=== PATIENT | female | born 1945 | race Asian ===

== ENCOUNTER 2024-09-28 13:30 | Outpatient (AMB) | payer MEDICARE, MEDICAID, SELFPAY ==
--- NOTE | 2024-09-28 13:46 | A.OFFPC_ITS ---
Vital Signs 09/28/24 13:47 Height 4 ft 5.7 in Weight 146 lb 6.191 oz BMI 35.7 BP 122/76 Blood Pressure Location Lt brachial Position Sitting Pulse 70 Pulse Source Pulse Oximeter Pulse Oximetry (%) 97 Oxygen Delivery Method Room Air Intake Visit Reasons: establish care Intake Note: The patient is here to establish care for GERD, vertigo, and joint pain/weakness in the lower extremities. The patient reports being unable to walk long distances without pain and also experiences lumbar pain. They recently returned to the state from [place] two months ago. Tester Operator Required: No Accompanied by: Son Allergies No Known Allergies Allergy (Verified 09/28/24 13:52) Tobacco use date assessed: 09/28/24 Fall risk assessment: No Falls in past year Last assessed Fall Risk: 09/28/24 Dental Screening Dental Screen Date: 09/28/24 Did you have a dental visit in the last 12 months?: Yes Did you have a dental problem in the last 6 months where you did not have access to dental care?: No Was dental information given to patient?: Patient has dentist [facility] Medical History (Updated 09/28/24 @ 14:36 by Norris Clark MD) Weakness Social History Housing: Apartment Patient Tobacco Use Status: Never used Tobacco e-Cigarette/Vaping Use: Never Used service: No Current occupational status: disabled Cognitive needs: No 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 1. Little interest or pleasure in doing things: more than half the days 2. Feeling down, depressed, or hopeless: nearly every day 3. Trouble falling or staying asleep, or sleeping too much: nearly every day 4. Feeling tired or having little energy: nearly every day 5. Poor appetite or overeating: nearly every day 6. Feeling bad about yourself - or that you are a failure or have let yourself or your family down: nearly every day 7. Trouble concentrating on things, such as reading the newspaper or watching television: more than half the days 8. Moving or speaking so slowly that other people could have noticed. Or the opposite - being so fidgety or restless that you have been moving around a lot more than usual: several days 9. Thoughts that you would be better off or of hurting yourself in some way: not at all Total score: 20 91965 - PHQ-9 Billing: Yes Source: Developed by Drs. Catalino Myers, Sallie Lopez, Vinh Meneses and colleagues, with an educational rebecca from [employer]. Thrive Questionnaire Date Thrive assessed: 09/28/24 I am a: Patient What is your living situation today?: I have a steady place to live Within the past 12 months, did the food you bought not last and you didn't have the money to get more?: Never true Within the past 12 months, did you worry whether your food would run out before you got money to buy more?: I choose not to answer this question Do you have trouble paying for medicines?: Yes Do you have trouble getting transportation to medical appointments?: Yes Do you have trouble paying your heating and electricity bill?: Yes Do you have trouble taking care of your child, family member or friend?: No Do you have trouble with day-to-day activities such as bathing, preparing meals, shopping, managing finances, etc.?: Yes Are you currently unemployed and looking for a job?: No Are you interested in more education?: No Please select the resources that you would like help with: Food, Paying for medicine, Utilities and Daily support Currently or been in a relationship where the following occur: No concerns reported THRIVE Score: 2 AUDIT C Alcohol Use Questionnaire (AUDIT-C) 1. How often do you have a drink containing alcohol?: Never 3. How often do you have six or more drinks on one occasion?: Never Total Score: 0 HEAVEN-7 AMB Questionnaire HEAVEN-7 Date HEAVEN - 7 assessed: 09/28/24 Feeling nervous, anxious, or on edge: 2 = More than half the days Not being able to stop or control worryin = More than half the days Worrying too much about different things: 2 = More than half the days Trouble relaxin = Several days Being so restless that it is hard to sit still: 1 = Several days Becoming easily annoyed or irritable: 1 = Several days Feeling afraid as if something awful might happen: 1 = Several days Total HEAVEN-7 score (0-4 normal; 5-9 mild; 10-14 moderate; 15-21 severe): 10 Source: Developed by Drs. Catalino Myers, Sallie Lopez, Vinh Meneses and colleagues, with an educational rebecca from [employer]. HEAVEN-7 Assessment Billing HEAVEN-7 Assessment Tool: HEAVEN-7 Assessment 97718 Physical exam (Primary Care) BMI result Body Mass Index 35.7 Thrive Assessment: Date of Thrive Assessment Date Thrive assessed 09/27/24 09/28/24 13:47 Currently or been in a relationship where the following occur: No concerns reported Coding Level of Care Code New Pt Level 4 (58628) Complex EM visit Add On G2211 Diagnoses Weakness R53.1 Additional Codes HEAVEN-7 Assessment Billing - HEAVEN-7 Assessment Tool: HEAVEN-7 Assessment 48119 ([id number]) PHQ-9 - 53559 - PHQ-9 Billing: Yes ([id number]) Assessment & Plan Assessment & Plan (1) Weakness: Code(s): R53.1 - Weakness Category: Medical Plan History of Present Illness The patient is a 79-year-old female presenting with generalized weakness that has been present for three to four years. The weakness is reported to be pr ogressive, and the patient describes a lack of strength and difficulty in performing daily activities. At home in [facility], the patient reported having a physiotherapist assist her daily. In addition to generalized weakness, the patient has long-standing gastroesophageal reflux disease (GERD), for which she regularly takes antacid medication to manage symptoms like acidity and burning sensations, particularly when consuming spicy foods. It has been five years since an endoscopic evaluation was done. 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 She denies any history of diabetes mellitus or hypertension. Her and daughter provide support with activities such as bathing and getting out for necessary functions like using the bathroom. The sedimentation rate was noted to be elevated at 90, which is above the normal range of 20 during a previous blood work evaluation. Social History - The patient recently moved from [place], where she lived with her and daughter. - She has been residing with her family for two months in the current location. - The patient's level of physical independence is reduced due to her generalized weakness, requiring assistance with some activities of daily living. - The patient relies on family support for transportation and functional assistance. Review of Systems - Ears, Nose, Throat: Reports partial hearing loss in the right ear. - Neuromuscular: Reports generalized weakness over the past three to four years. Denies any recent falls or accidents. Physical Exam General: Appearance normal, both eyes and all related structures Nutritional Appearance: Well nourished Orientation/consciousness: Patient oriented x3 Limitations: Generalized weakness, requires assistance for mobility and bathroom use Head: Normal to inspection Neck: Normal visual inspection Chest: Normal palpation of entire chest wall Respiratory: Normal respiratory effort Neurology: Patient oriented x3, hearing impairment in the right ear Results - Labs: Elevated sedimentation rate at 90 (normal should be <=0). Plan - Gastroesophageal Reflux Disease GERD): Continue with current antacid medication for symptom management. Consider dietary modifications to avoid triggers such as spicy foods. - Partial Hearing Loss Right Ear): Recommend an audiology assessment for further evaluation of hearing impairment and to determine necessary supportive interventions. - Generalized Weakness: Order imaging studies, including an X-ray of the spine and neck, and a CT scan of the head to further evaluate the etiology. Consider neurology referral for comprehensive assessment and management. Patient was informed and verbally consented to the use of an ambient scribe for clinic note documentation during this visit. Discussion Notes I discussed the management options for the patient's current health concerns, emphasizing the need for further diagnostic imaging to understand the underlying cause of her generalized weakness. We agreed to obtain an X-ray of the spine and neck, and a CT scan of the head. I explained the slightly elevated sedimentation rate and stated that this requires further investigation to identify any inflammatory processes. The risks and benefits of following up with neurology were reviewed should results show a need for further specialist input. We planned a follow-up visit in two weeks to review the findings and adjust the care plan as necessary. Patient Instructions - Continue taking prescribed antacid medication daily and monitor for any flare- ups of acidity symptoms. - Follow the dietary recommendations to avoid spicy foods and other known GERD triggers. - Schedule an audiology appointment to evaluate the extent of hearing loss. - Prepare for upcoming imaging studies as ordered, including X-ray and CT scan. - Return for follow-up in approximately two weeks to review results and discuss next steps in management. Orders: Orders Complete Blood Count no Diff Today R53.1 - Weakness Lipid Panel Today R53.1 - Weakness UA and rflx microscopic Today R53.1 - Weakness Erythrocyte Sedimentation Rate Today R53.1 - Weakness Basic Metabolic Panel Today R53.1 - Weakness Liver Panel Today R53.1 - Weakness Thyroid Stimulating Hormone Today R53.1 - Weakness XR lumbar spine 2-3V Today R53.1 - Weakness CT head/brain wo IV con Today R53.1 - Weakness
[2024-09-28 13:47] VITALS: BP 122/76; PULSE 70; O2SAT 97; BMI 35.7
== END 2024-09-28 14:42 | disposition home or self-care (01) ==
PROVIDERS: PCP Internal Medicine; Visit Provider Internal Medicine
DX: R53.1 Weakness (principal)

== ENCOUNTER → 2024-09-28 13:30 | Outpatient (BNVA) | payer MEDICARE, SELFPAY | PROVIDERS: Visit Provider Internal Medicine | DX: R53.1 Weakness (principal) | CPT/HCPCS: 96127; 99202 ==

== ENCOUNTER 2024-10-04 09:19 | Outpatient (REF) | payer MEDICARE, MEDICAID, SELFPAY | END 2024-10-04 09:20 | disposition home or self-care (01) | LOC: HO.XRAY 09:19 | PROVIDERS: PCP Internal Medicine; Visit Provider Internal Medicine | DX: R53.1 Weakness (principal) | CPT/HCPCS: 72100 ==

== ENCOUNTER 2024-10-07 07:56 | Outpatient (REF) | payer MEDICARE, MEDICAID, SELFPAY ==
[2024-10-07 09:04] LABS: Hematocrit 39.2 % (37.0-47.0); Hemoglobin 12.7 g/dl (12.0-16.0); Mean Corpuscular HGB Conc 32.4 g/dl (31.0-35.0); Mean Corpuscular Hemoglobin 29.5 pg (27.0-33.0); Mean Corpuscular Volume 91.2 fL (80.0-98.0); Mean Platelet Volume 11.2 fL (9.4-12.3); Platelet Count 292 X10*3/uL (160-400); Red Cell Distribution Width 13.7 % (11.0-16.0); White Blood Count 8.2 X10*3/uL (4.8-10.8)
[2024-10-07 09:15] LABS: Appearance Urine Cloudy; Color Urine Yellow; Glucose Urine UA Negative (Negative); Leukocyte Esterase Urine Negative (Negative); Nitrite Urine Negative (Negative); Specific Gravity - Urine 1.015 (1.005-1.025); UMIC TRIGGER UA YES; Urine Blood Small (1+) (Negative); Urine Ketones Negative (Negative); Urine Protein Negative (Neg-Trace)
[2024-10-07 09:27] LABS: Bacteria Urine Trace (None Seen); Hyaline Casts Urine 0-2 /LPF (0-2); RBC Urine 0-2 /HPF (0-2); WBC Urine 0-5 /HPF (0-5)
[2024-10-07 09:34] LABS: Alanine Aminotransferase 14 U/L (0-31); Albumin Level 3.8 g/dL (3.5-5.0); Alkaline Phosphatase 81 U/L (39-117); Anion Gap 9 (12-20); Aspartate Amino Transferase 19 U/L (5-31); Bilirubin Direct 0.1 mg/dL (0.0-0.5); Bilirubin Total 0.5 mg/dL (0.0-1.0); Blood Urea Nitrogen 15 mg/dL (9-16); Calcium 9.8 mg/dL (8.4-10.2); Carbon Dioxide 30 mmol/L (22-29); Chloride 107 mmol/L (96-108); Cholesterol 219 mg/dL (<200); Estimated Glomerular Filt Rate > 60; Glucose Random 91 mg/dL (60-115); HDL Cholesterol 38 mg/dL (>40); LDL Cholesterol Calculated 144 mg/dL (<100); Potassium 4.3 mmol/L (3.3-5.1); Sodium 142 mmol/L (135-145); Total Protein 7.5 g/dL (6.5-8.0); Triglycerides 186 mg/dL (<150)
[2024-10-07 09:42] LABS: Erythrocyte Sedimentation Rate 43 MM/HR (0-20)
[2024-10-07 09:51] LABS: Thyroid Stimulating Hormone 4.03 uIU/mL (0.32-4.0)
== END 2024-10-07 07:57 | disposition home or self-care (01) ==
LOC: HO.LAB 07:56
PROVIDERS: PCP Internal Medicine; Visit Provider Internal Medicine
DX: R53.1 Weakness (principal)
CPT/HCPCS: 36415; 80048; 80061; 80076; 81001; 84443; 85027; 85652

== ENCOUNTER 2024-10-10 10:18 | Outpatient (AMB) | payer MEDICARE, MEDICAID, SELFPAY ==
--- NOTE | 2024-10-10 10:21 | A.OFFPC_ITS ---
Vital Signs 10/10/24 10:23 Height 4 ft 5.7 in Weight 146 lb 4 oz BMI 35.7 BP 132/68 Blood Pressure Location Lt brachial Position Sitting Pulse 81 Pulse Source Pulse Oximeter Pulse Oximetry (%) 98 Oxygen Delivery Method Room Air Intake Visit Reasons: 2 week f/u Intake Note: Patient is here to follow up on Weakness. Director Global Development Required: No Plastic Surgery Assistant: Present Accompanied by: Son Allergies No Known Allergies Allergy (Verified 10/10/24 10:23) Tobacco use date assessed: 10/10/24 Fall risk assessment: No Falls in past year Last assessed Fall Risk: 10/10/24 Dental Screening Dental Screen Date: 09/28/24 PFSH Medical History (Updated 10/10/24 @ 11:12 by Norris Clark MD) Kyphoscoliosis Weakness Surgical History (Updated 10/10/24 @ 10:31 by BETTY Isaacs) No pertinent past surgical history Social History Housing: Apartment Patient Tobacco Use Status: Never used Tobacco e-Cigarette/Vaping Use: Never Used Second Hand Smoke Exposure: No service: No Current occupational status: disabled Cognitive needs: No 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 ) Vision needs: No Questionnaire Thrive Questionnaire Date Thrive assessed: 09/28/24 I am a: Patient What is your living situation today?: I have a steady place to live Within the past 12 months, did the food you bought not last and you didn't have the money to get more?: Never true Within the past 12 months, did you worry whether your food would run out before you got money to buy more?: I choose not to answer this question Do you have trouble paying for medicines?: Yes Do you have trouble getting transportation to medical appointments?: Yes Do you have trouble paying your heating and electricity bill?: Yes Do you have trouble taking care of your child, family member or friend?: No Do you have trouble with day-to-day activities such as bathing, preparing meals, shopping, managing finances, etc.?: Yes Are you currently unemployed and looking for a job?: No Are you interested in more education?: No Currently or been in a relationship where the following occur: No concerns reported THRIVE Score: 2 HEAVEN-7 AMB Questionnaire HEAVEN-7 Date HEAVEN - 7 assessed: 09/28/24 Source: Developed by DrsLucien Myers, Sallie Lopez, Vinh Meneses and colleagues, with an educational rebecca from [employer]. Physical exam (Primary Care) Vital Signs: Last Vital Signs Pulse 81 10/10/24 10:23 BP 132/68 10/10/24 10:23 Pulse Ox 98 10/10/24 10:23 Oxygen Delivery Method Room Air 10/10/24 10:23 BMI result Body Mass Index 35.7 Tobacco/Smoking Status: Tobacco use Status Tobacco use date assessed 10/10/24 10/10/24 10:30 Patient Tobacco Use Status Never used Tobacco 10/10/24 10:22 e-Cigarette/Vaping Use Never Used 10/10/24 10:22 Thrive Assessment: Date of Thrive Assessment Date Thrive assessed 09/28/24 10/10/24 10:22 Currently or been in a relationship where the following occur: No concerns reported Office Procedures EKG 13681-Xoxxptdqxmutbywno, Complete EKG Details: NSR 72459-Ftglroebgdxyyechl, Complete Coding Level of Care Code Est Pt Level 4 (68174) Complex EM visit Add On G2211 Diagnoses Kyphoscoliosis M41.9 Weakness R53.1 Shortness of breath R06.02 CPT Codes EKG - CPT: 85981-Riqdrbrjdbfjzyffl, Complete ([id number]) EKG - CPT: 10836-Dcqvcitzujaygeqxp, Complete ([id number]) Assessment & Plan Assessment & Plan (1) Kyphoscoliosis: Code(s): M41.9 - Scoliosis, unspecified Category: Medical Plan: Most of her symptoms of weakness and shortness of breath can be attributed to deconditioning and kyphoscoliosis. An ortho evaluation will be considered to determine if any procedures are available to correct this. (2) Weakness: Code(s): R53.1 - Weakness Category: Medical Plan: Weakness is due to deconditioning. Physical therapy has been suggested. (3) Shortness of breath: Code(s): R06.02 - Shortness of breath Plan: EKG revd Plan History of Present Illness The patient is a 79-year-old female presenting with chronic weakness. The onset of this symptom is not clearly dated, but it is noted as a long-standing issue. Additionally, the patient exhibits signs of deconditioning, primarily attributed to progressive kyphoscoliosis and scoliosis. Her condition has deteriorated over time, leading to difficulty in maintaining posture and walking balance. Son in law reports her symptoms of weakness and difficulty walking have been present for many years, She has been unable to do her ADL's. She has a progressing kyphosis which is making ambulation difficult. Patient reports Shortness of breath on exertion. Previous interventions included a physiotherapist visiting her home in [place], which has not been continued in the current setting. Diagnostic tests, including a CAT scan and X-rays, are pending or not received yet. Social History - Functional Status: Largely inactive lifestyle with reliance on household assistance and minimal physical exertion. - Family Status: Living with family since 2019 following the of her [id number]-ynt. - Exercise: Previously engaged with a physiotherapist at home in [place], but not currently. Review of Systems - Ear/Nose/Throat: Reports persistent right ear pain. - Musculoskeletal: Reports progressive spinal curvature and difficulty with walking. Physical Exam General: Appearance normal, both eyes and all related structures Nutritional Appearance: Well nourished Orientation/consciousness: Patient oriented x3 Limitations: Progressive kyphosis and scoliosis present Head: Normal to inspection Neck: Normal visual inspection Chest: Normal palpation of entire chest wall Respiratory: Normal respiratory effort Neurology: Patient oriented x3 Able to get up from a chair, without support, with extreme difficulty. Cannot lie down flat on the bed, has to lie down sideways. Results Plan - Arrange a physical therapy consultation to manage kyphoscoliosis and scoliosis, initiating therapy at the clinic and transitioning to home if feasible. - Schedule a follow-up appointment to review the pending CAT scan results and X- rays once received. - Discuss the necessity of daily walking to enhance physical conditioning and balance. - Consider referral to orthopedics for further management of spinal deformities. - Coordinate transportation resources to facilitate attendance at medical appointments. Patient was informed and verbally consented to the use of an ambient scribe for clinic note documentation during this visit. Discussion Notes I discussed with the patient the present diagnosis of progressive kyphoscoliosis and scoliosis, highlighting the impact this has on her current deconditioning state. Physical therapy was emphasized as critical for managing her condition with further evaluation by an military communications specialist if necessary. We agreed that daily walking could help in mitigating further deconditioning. Logistics for transportation to appointments and therapy sessions were verified to ensure accessibility. I will follow up with her in one month to assess her progress and needs. Patient Instructions - Attend scheduled physical therapy sessions. - Engage in daily walking to improve strength and balance. - Await and comply with further investigations including CAT scan and X-rays. - Coordinate with provided transportation services for medical visits. - Expect follow-up in one month to review progress and reassess care plan. Orders: Orders AMB EKG-In Office Today R06.02 - Shortness of breath AMB EKG-In Office Today R53.1 - Weakness, Z13.6 - Encounter for screening for cardiovascular disorders
[2024-10-10 10:23] VITALS: BP 132/68; PULSE 81; O2SAT 98; BMI 35.7
== END 2024-10-10 11:13 | disposition home or self-care (01) ==
PROVIDERS: Visit Provider Internal Medicine
DX: M41.9 Scoliosis, unspecified (principal); R53.1 Weakness; R06.02 Shortness of breath

== ENCOUNTER → 2024-10-10 10:18 | Outpatient (BNVA) | payer MEDICARE, SELFPAY | PROVIDERS: Visit Provider Internal Medicine | DX: M41.9 Scoliosis, unspecified (principal); R53.1 Weakness; R06.02 Shortness of breath | CPT/HCPCS: 93005; 99212 ==

== ENCOUNTER 2024-11-14 15:10 | Outpatient (REF) | payer MEDICARE, MEDICAID, SELFPAY ==
--- NOTE | ~2024-11-14 | CT_ITS ---
EXAMINATION: CT HEAD WITHOUT CONTRAST CLINICAL INFORMATION: Weakness COMPARISON: None available. TECHNIQUE: Contiguous axial imaging was performed from the skull base to vertex without intravenous administration of contrast. This CT examination was performed using dose optimization techniques as appropriate, variously including the following: *Automated exposure control *Adjustment of mA and/or kV according to patient size (this includes techniques or standardized protocols for targeted exams where dose is matched to indication/reason for exam; i.e. extremities or head) *Use of iterative reconstruction technique. DLP 717 FINDINGS: There is no acute intra-axial, extra-axial bleed, masses or midline shift. There is no acute infarction evolution. The fink to white matter differentiation is maintained normal. The lateral ventricles are symmetrical in size but moderately enlarged. There is mild periventricular hypodensity in both cerebral hemispheres without edema. Bone windows reveal no calvarial abnormality. Bilateral paranasal sinuses and mastoid air cells are well-aerated. There is no scalp soft tissue abnormality. Moderate left C1-C2 facet joint arthropathy and hypertrophy is noted. CT/CT head/brain wo IV con IMPRESSION: No acute intracranial process seen. Electronically signed by: Champ Brooks MD 11/14/2024 04:03 PM [facility]
== END 2024-11-14 15:11 | disposition home or self-care (01) ==
LOC: HO.CT 15:10
PROVIDERS: Visit Provider Internal Medicine
DX: R53.1 Weakness (principal)
CPT/HCPCS: 70450

== ENCOUNTER → 2024-11-14 15:12 | Outpatient (BNV) | payer MEDICARE, MEDICAID, SELFPAY | PROVIDERS: Visit Provider Radiology Diagnostic Radiology | DX: R53.1 Weakness (principal) | CPT/HCPCS: 70450 ==

== ENCOUNTER → 2024-11-24 07:45 | Outpatient (BNVA) | payer MEDICARE, SELFPAY | PROVIDERS: Visit Provider Internal Medicine | DX: M41.9 Scoliosis, unspecified (principal); E03.9 Hypothyroidism, unspecified; N89.8 Other specified noninflammatory disorders of vagina | CPT/HCPCS: 96127; 99212 ==

== ENCOUNTER 2024-12-20 08:52 | Outpatient (REF) | payer MEDICARE, SELFPAY ==
[2024-12-21 11:48] LABS: CT PCR NOT DETECTED (Not Detect.); NG PCR NOT DETECTED (Not Detect.)
[2024-12-21 13:48] LABS: Bacterial Vaginosis PCR NEGATIVE (Negative); Candida Group PCR NOT DETECTED (Not Detect); Candida glab krusei PCR NOT DETECTED (Not Detect); Trichomonas vaginalis PCR NOT DETECTED (Not Detect)
== END 2024-12-20 08:53 | disposition home or self-care (01) ==
LOC: HO.LNP 08:52
PROVIDERS: Visit Provider Obstetrics & Gynecology
DX: N89.8 Other specified noninflammatory disorders of vagina (principal); R31.29 Other microscopic hematuria
CPT/HCPCS: 81515; 87086; 87491; 87591; 99202; 99459

== ENCOUNTER 2024-12-20 08:52 | Outpatient (AMB) | payer MEDICARE, MEDICAID, SELFPAY ==
[2024-12-20 09:10] VITALS: BMI 35.1
--- NOTE | 2024-12-20 09:10 | MHC.OFFVIS ---
Vital Signs 12/20/24 09:10 12/20/24 09:16 Height 4 ft 5.7 in 4 ft 5.7 in Weight 144 lb 144 lb BMI 35.1 35.1 BP 122/72 Intake Visit Reasons: Disorder of Vagina Micro Computer Data Processor Required: Yes Micro Computer Data Processor Language: Simone Micro Computer Data Processor Services: Micro Computer Data Processor Present (in person) Micro Computer Data Processor Name: Zaira Quintero Information Interpreted: non-clinical & clinical Placement Secretary: Placement Secretary Present (Neela Scales) Accompanied by: Daughter Allergies No Known Allergies Allergy (Verified 12/20/24 09:14) HPI Comments Details: Presenting complaining of vaginal discharge brownish in color over the last few years according to the patient, it was associated with urinary dysuria, vaginal foul odor, no vulvovaginal itching PFSH Medical History Acquired hypothyroidism Kyphoscoliosis Weakness Surgical History History of left knee replacement No pertinent past surgical history Social History Housing: Apartment Patient Tobacco Use Status: Never used Tobacco e-Cigarette/Vaping Use: Never Used Second Hand Smoke Exposure: No service: No Current occupational status: disabled Cognitive needs: No 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 ) Vision needs: No Female Reproductive History Menstrual Total pregnancies: 6 Full term: 2 Ab spontaneous: 4 Review of Systems Const All systems reviewed & are unremarkable except as noted in HPI and below Physical Exam Vital Signs: Last Vital Signs BP 122/72 12/20/24 09:16 BMI result Body Mass Index 35.1 General: Yes no CVA tenderness External Female Exam: normal external appearance and normal appearance of the urethra Speculum Exam - Vagina: normal appearance of the vagina, normal palpation, no lesions and no masses Speculum Exam - Cervix: normal appearance of the cervix, normal palpation, no lesions, no masses and nontender Bimanual exam- vagina & uterus: normal bimanual exam, normal palpation, uterine size normal, normal palpation, uterine shape normal, No Cervical tenderness present and non-tender Bimanual Exam- Adnexa, other: normal adnexae Back/Spine/Pelvis Back: no CVA tenderness Assessment & Plan Assessment & Plan (1) Vaginal discharge: Comment: Brownish with malodor Code(s): N89.8 - Other specified noninflammatory disorders of vagina Category: Medical Plan: GC/CT with BV panel collected, pelvic ultrasound ordered. Instructions given the patient is schedule an ultrasound follow-up appointment within 2 weeks. All questions answered, the patient verbalized understanding (2) Microscopic hematuria: Code(s): R31.29 - Other microscopic hematuria Category: Medical Plan: Urine dip showed microscopic hematuria, urine culture sent. Will repeat urine dip in 2 weeks. Discussed with the patient the possible causes of microscopic hematuria including but not limited to: interstitial cystitis, polyps, stones, masses, urethral inflammatory processes and others. If Urine Culture is negative and repeat urine dip in 2 weeks shows persistent microscopic hematuria, will proceed with CT abdomen/pelvis and urology referral. Instructions given the patient to schedule a 2 week urine dip follow-up appointment. All questions answered and the patient verbalized understanding. Orders: Orders US pelvic and transvaginal Today N89.8 - Other specified noninflammatory disorders of vagina Coding Level of Care Code New Pt Level 3 (47081) Diagnoses Vaginal discharge N89.8 Microscopic hematuria R31.29
[2024-12-20 09:16] VITALS: BP 122/72; BMI 35.1
--- OUTSIDE RECORDS SUMMARY | 2024-12-20 09:32 | XMS_ITS | Patient Health Record ---
Author Organization Medical Care Address [address] [facility] [address] [place] [address] Support Name Relationship Address Phone Aurora Quintero Guarantor Unknown [phone] Allergies No Known Allergies Reason For Referral No Information Plan Of Treatment Pending Test Test Name Order Date Covid-19 PCR - [facility] 07/30/2021 COVID 19 07/30/2021 Insurance Providers Payer Name Payer Address Payer Phone Subscriber Number Group Number Insured Name Patient Relationship to Insured Coverage Start Date Coverage End Date [place] Medicare Part [place] J13 - [address] [place] [phone] [id number] Aurora Quintero Self - patient is the insured
== END 2024-12-20 10:02 | disposition home or self-care (01) ==
PROVIDERS: Visit Provider Obstetrics & Gynecology
DX: N89.8 Other specified noninflammatory disorders of vagina (principal); R31.29 Other microscopic hematuria
CPT/HCPCS: 99203

== ENCOUNTER 2024-12-27 10:01 | Outpatient (RCR) | payer MEDICARE, MEDICAID, SELFPAY ==
--- NOTE | 2024-11-16 09:00 | MHC.PT.EP ---
[facility] [place] Office [place] Office [place] Office [address] Joceline Morgna [address] [phone] F: [phone] F: [phone] F: [phone] F: [phone] Physical Therapy Plan of Care Date of Evaluation: 11/15/24 Date of Surgery: Diagnosis: KYPHOSCOLIOSIS, WEAKNESS, DECONDITIONING DUE TO SEDENTARY HABITS (ON XR: Bilateral SI joint arthritis.) Assessment: 79 YO FEMALE REF TO PT W KYPHOSCOLIOSIS AND WEAKNESS DUE TO SEDENTARY LIFESTYLE , PER DR DE SANTIAGO. SHE PRESENTED W ALTERED GAIT MECH, PAIN LIMITING TRANSFERS AND BED MOB, LIMITED TRUNK AROM AND DECR HIP FLEXIB., AND FLUCTUATING PAIN IN HER LB AND THIGHS. SHE REQ ASSIST W MOST ADLs. THE Pt STATED THE MAJORITY OF HER DAY CONSISTS OF SITTING- READING, LECTURES, PRAYERS-> SHE APPLIES HEAT AND USES A CUSHION IN HER CHAIR. SHE WOULD BENEFIT FROM A TRIAL OF PT. Frequency and Duration: The patient will be seen 2 x WK x 4 WKS Short Term Goals: DECR MID-LBP TO 3-4/10 Pt INDEP W SELF CORRECT POSTURE INITIATE HEP FOR LEs AND LUMBOPELVIC SYMM/ STAB, ENCOURAGING WITH FAMILY ASSIST FOR CARRYOVER IMPROVE LEs STRENGTH TO IMPROVE TRANSFERS/ BED MOB Prison Goals: Pt AND DTRS INDEP W HEP AND SELF-SX MGMT TECHN Pt IMPROVE OVERALL ACTIVITY LEVEL-> IMPROVED OSWESTRY (AT EVAL ) Pt DISPLAY EFFICIENT GAIT MECH W LEAST RESTRICTIVE ASST DEVICE Pt DEMON EFFICIENT TRANSFERS AND BED MOB Treatment Plan: Modalities to reduce pain, spasms and effusion. Manual therapy to restore motion and function. Therapeutic exercise to improve strength and flexibility. Neuromuscular re-education for posture and balance. Therapeutic activities to return to functional activities of daily living. Electronically signed by: ELIZABETH SUTHERLANDPT Please sign and return to therapist. Thank you for your referral.
--- NOTE | 2024-12-27 11:01 | MHC.PT.DC ---
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 HER LEs STRENGTH IS IMPROVED , WELL HER LEs FLEXIBILITY. SHE IS D/C THIS DATE W HER HEP. Electronically signed by: ELIZABETH SUTHERLAND,PT Please sign and return to therapist. Thank you for your referral.
== END 2024-12-27 11:01 | disposition home or self-care (01) ==
LOC: HO.PT 10:01
PROVIDERS: PCP Internal Medicine; Visit Provider Internal Medicine
DX: M41.9 Scoliosis, unspecified (principal); R53.1 Weakness
CPT/HCPCS: 97110; 97162; 97530

== ENCOUNTER 2025-01-10 13:36 | Outpatient (REF) | payer MEDICARE, SELFPAY ==
--- NOTE | ~2025-01-10 | US_ITS ---
EXAMINATION: US PELVIS TRANSABDOMINAL AND TRANSVAGINAL HISTORY: N89.8 - vaginal discharge COMPARISON: There are no prior studies for comparison. TECHNIQUE: Transabdominal and endovaginal real-time 2D sainz-scale ultrasound was performed. FINDINGS: Uterus: The uterus is normal in size, measuring 6.1 x 3.2 x 5.1 cm. Myometrium has a normal echotexture. No fibroids are identified. Endometrium: The endometrial stripe measures 18 mm in thickness and is markedly heterogeneous in appearance demonstrating multiple cystic areas. Right ovary: The right ovary is not identified. Left ovary: The left ovary is not identified. Pelvic fluid: none. US/US pelvic and transvaginal IMPRESSION: Thickened heterogeneous endometrial stripe demonstrating multiple cystic areas. A mass is not excluded. Hysteroscopy is suggested. Electronically signed by: Catalino Kaba MD 01/10/2025 03:16 PM EDT
--- OUTSIDE RECORDS SUMMARY | 2025-01-10 16:03 | XMS_ITS | Patient Health Record ---
Author Organization Medical Care Address [address] [facility] [address] [place] [address] Support Name Relationship Address Phone Aurora Quintero Guarantor Unknown [phone] Allergies No Known Allergies Reason For Referral No Information Plan Of Treatment Pending Test Test Name Order Date Covid-19 PCR - [facility] 07/30/2021 COVID 19 07/30/2021 Insurance Providers Payer Name Payer Address Payer Phone Subscriber Number Group Number Insured Name Patient Relationship to Insured Coverage Start Date Coverage End Date [place] Part [place] J13 - [address] [place] [address] [id number] Aurora Quintero Self - patient is the insured
== END 2025-01-10 13:37 | disposition home or self-care (01) ==
LOC: HO.US 13:36
PROVIDERS: Visit Provider Obstetrics & Gynecology
DX: N89.8 Other specified noninflammatory disorders of vagina (principal)
CPT/HCPCS: 76830; 76856

== ENCOUNTER → 2025-01-10 13:37 | Outpatient (BNV) | payer MEDICARE, SELFPAY | PROVIDERS: Visit Provider Radiology Diagnostic Radiology | DX: N85.8 Other specified noninflammatory disorders of uterus (principal); N89.8 Other specified noninflammatory disorders of vagina | CPT/HCPCS: 76830; 76856 ==

== ENCOUNTER 2025-01-13 14:01 | Outpatient (AMB) | payer MEDICARE, SELFPAY ==
--- NOTE | 2025-01-13 14:08 | MHC.OFFVIS ---
Intake Visit Reasons: ultrasound results Display Fabricator Required: Yes Display Fabricator Language: Simone Display Fabricator Services: Display Fabricator Present ([email or web address]) Display Fabricator Name: Mian [id number] Information Interpreted: clinical only Newspaper Vendor: Newspaper Vendor Present (Neela) Accompanied by: Daughter Allergies No Known Allergies Allergy (Verified 01/13/25 14:10) Is last menstrual period known: No Post menopausal: Yes Patient : No Do you need a note to return to daycare/school/sports/work: Yes (for surgery on thursday) HPI Comments Details: Presenting for ultrasound follow-up after prominence vaginal discharge. Pelvic ultrasound done on 01/10/2025 showed the following: Uterus: The uterus is normal in size, measuring 6.1 x 3.2 x 5.1 cm. Myometrium has a normal echotexture. No fibroids are identified. Endometrium: The endometrial stripe measures 18 mm in thickness and is markedly heterogeneous in appearance demonstrating multiple cystic areas. Right ovary: The right ovary is not identified. Left ovary: The left ovary is not identified. Pelvic fluid: none. 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 ) Vision needs: No Female Reproductive History Menstrual Date of last menstrual period: 08/23/20 Total pregnancies: 2 Full term: 2 Review of Systems Card Reports as per HPI and Reports no additional complaints Resp Reports as per HPI and Reports no additional complaints GI Reports as per HPI and Reports no additional complaints Reports as per HPI Physical Exam Const General: cooperative, healthy appearing and comfortable Resp Effort & Inspection: normal respiratory effort Auscultation: clear to auscultation bilaterally Percussion: percussion normal Cardio Palpation: normal PMI Rate: regular rate Rhythm: regular rhythm Heart sounds: no murmurs and no rubs Peripheral pulses: Peripheral pulses 2+ throughout GI Inspection: Yes normal to inspection Palpation (GI): Soft to palpation, nontender, no guarding, not rigid and No hepatosplenomegaly present Percussion: Yes normal to percussion Auscultation: normal bowel sounds Rectal Exam - Female: deferred Assessment & Plan Assessment & Plan (1) Abnormal ultrasound of endometrium: Code(s): R93.5 - Abnormal findings on diagnostic imaging of other abdominal regions, including retroperitoneum Category: Medical Plan: Discussed with the patient the pelvic ultrasound findings, the endometrial stripe thickenss measured by ultrasound was more than 4mm and being heterogenous. The negative predictive value, positive predictive value, Sensitivity, specificity of using ultrasound measurement of endometrial stripe to detecting endometrial pathology including hyperplasia , polyp or cancer were discussed with the patient. Recommended to the patient that the next step is an endometrial sampling via hysteroscopy D&C possible polypectomy versus endometrial biopsy to r/o endometrial pathology including hyperplasia or cancer. All the pros and cons risks and benefits of each approach were discussed with the patient, endometrial biopsy being less invasive, office procedure with less sensitivity and inability diagnose a polyp and removal versus hysteroscopy done under anesthesia more invasive more sensitive to endometrial cancer and possibility of diagnosing and endometrial polyp with the possibility of polypectomy. All questions were answered pt verbalized understanding and decided to proceed with hysteroscopy D&C possible polypectomy/myomectomy. Discussed with the patient the procedure , all benefits and risks including but not limited to inability to complete the procedure , insufficient endometrial tissue for a complete evaluation of the endometrial cavity , bleeding, infection, possible need for blood transfusion with all its risk ( HIV,syphilis, Hepatitis, anaphylaxis shock, others..), injury to bladder, rectum, possible need for laparoscopy/laparotomy or hysterectomy. The patient verbalized understanding and signed the consent. Instructions given the patient to stay NPO after midnight the day prior to the procedure and to take only the specific medication (s) discussed the morning of the surgical procedure and to schedule a 2 week postoperative appointment Coding Level of Care Code Est Pt Level 3 (63123) Diagnoses Abnormal ultrasound of endometrium R93.5
--- OUTSIDE RECORDS SUMMARY | 2025-01-13 16:18 | XMS_ITS | Patient Health Record ---
Author Organization Medical Care Address [address] [facility] [address] [place] [address] Support Name Relationship Address Phone Aurora Quintero Guarantor Unknown [phone] Allergies No Known Allergies Reason For Referral No Information Plan Of Treatment Pending Test Test Name Order Date Covid-19 PCR - [facility] 07/30/2021 COVID 19 07/30/2021 Insurance Providers Payer Name Payer Address Payer Phone Subscriber Number Group Number Insured Name Patient Relationship to Insured Coverage Start Date Coverage End Date [place] Part [place] J13 - [address] [place] [address] [id number] Aurora Quintero Self - patient is the insured
== END 2025-01-13 15:16 | disposition home or self-care (01) ==
LOC: HO.HWS 14:01
PROVIDERS: PCP Internal Medicine; Visit Provider Obstetrics & Gynecology
DX: R93.5 Abnormal findings on diagnostic imaging of other abdominal regions, including retroperitoneum (principal)
CPT/HCPCS: 99213

== ENCOUNTER → 2025-01-13 14:01 | Outpatient (BNVA) | payer MEDICARE, SELFPAY | PROVIDERS: PCP Internal Medicine; Visit Provider Obstetrics & Gynecology | DX: R93.5 Abnormal findings on diagnostic imaging of other abdominal regions, including retroperitoneum (principal) | CPT/HCPCS: 99212 ==

== ENCOUNTER 2025-01-25 12:45 | Day surgery (SDC) | payer MEDICARE, SELFPAY ==
--- NOTE | 2025-01-23 14:28 | HO.ANESPROP2 ---
HPI - Anesthesia Eval Consult details Narrative: 79yo F for D&C Hysteroscopy, possible myomectomy/ polypectomy PMFSH Active Problems Active Problems: All Active Problems Abnormal ultrasound of endometrium (Acute) Microscopic hematuria (Acute) Vaginal discharge (Acute) Acquired hypothyroidism (Acute) Kyphoscoliosis (Acute) Weakness (Acute) Past Medical History Medical History Acquired hypothyroidism Kyphoscoliosis Weakness Surgical History Surgical History History of left knee replacement Social History Social History Housing: Apartment Patient Tobacco Use Status: Never used Tobacco e-Cigarette/Vaping Use: Never Used Second Hand Smoke Exposure: No service: No Current occupational status: disabled Cognitive needs: No 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
[2025-01-25 12:57] VITALS: BMI 30.9
[2025-01-25 13:15] VITALS: BP 178/73; PULSE 93; RESP 16; TEMP 36.7; O2SAT 99
[2025-01-25] MEDS: Lactated Ringers 1,000 ML 100 ML IVCONT (13:35)
--- NOTE | 2025-01-25 13:53 | HO.ANESPROP2 ---
[facility] Active Problems Active Problems: All Active Problems Abnormal ultrasound of endometrium (Acute) Microscopic hematuria (Acute) Vaginal discharge (Acute) Acquired hypothyroidism (Acute) Kyphoscoliosis (Acute) Weakness (Acute) Past Medical History Medical History Acquired hypothyroidism Kyphoscoliosis Weakness Functional capacity: independent ambulation Patient : No Family History Family history of problems with anesthesia: No Surgical History Surgical History History of left knee replacement History of Problems with Anesthesia: No Social History Social History Housing: Apartment Patient Tobacco Use Status: Never used Tobacco e-Cigarette/Vaping Use: Never Used Second Hand Smoke Exposure: No service: No Current occupational status: disabled Cognitive needs: No 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 ) Vision needs: No Meds Allergies Allergy/AdvReac Type Severity Reaction Status Date / Time No Known Allergies Allergy Verified 01/13/25 14:10 Active Medications: Current Medications Lactated Ringer's (Lr) 1,000 mls @ 100 mls/hr IVCONT .Q10H ALEJANDRA Last Admin: 01/25/25 13:35 Dose: 100 mls/hr Exam Height,Weight and Vital Signs: Height 4 ft 9 in Weight 64.8 kg Last Vital Signs Temp 98.1 F 01/25/25 13:15 Pulse 93 01/25/25 13:15 Resp 16 01/25/25 13:15 BP 178/73 H 01/25/25 13:15 Pulse Ox 99 01/25/25 13:15 O2 Del Method Room Air 01/25/25 13:15 Airway Mallampati Class: II TM Dist: >3cm Neck ROM: Full Heart: RRR Lungs: CTA Assessment and Plan Assessment Anesthesia Assessment: Anesthesia Plan Discussed and Chart Reviewed Final Anesthetic Review Family History of Problems with Anesthesia: No History of Problems with Anesthesia: No NPO: Yes ASA Class: II Final Preanesthetic Review: Meds/Allgs Chart Reviewed, Consent Obtained/Reviewed and Anes Risks/Benef Reviewed Patient Risk: Low Procedure Risk: Low Anesthetic Plan Anesthetic Plan: GA Disposition: Standard PACU
--- NOTE | 2025-01-25 14:12 | MHC.SHP ---
Pre-Procedural Eval Section A - 24 Hr Update-Section A only Date of Service: 01/25/25 The patient is an INPATIENT: No Changes since office visit: No Cold of Flu in the past 2 weeks, No New Medical Problems, No Changes in Medication and No Patient answered all questions The patient has been examined within 24 hours of the surgical procedure. The History & Physical has been completed within 30 days and I have reviewed it.: Yes Section B - Complete if H&P > 30 days Chief Complaint: Abnormal findings on diagnostic imaging of other Allergies: Allergies Allergy/AdvReac Type Severity Reaction Status Date / Time No Known Allergies Allergy Verified 01/13/25 14:10 Plan Diagnosis/Plan: Unchanged I have reviewed the history and physical and performed a pertinent physical examination on my patient. No changes have occurred unless specified. Time Spent With Patient Time: Total time managing care of this patient today ____ minutes.
--- NOTE | 2025-01-25 15:01 | P.BOP_ITS ---
Brief Operative Note Date of Service: 01/25/25 Pre-op diagnosis: Abnormal endometrium by ultrasound Post-op diagnosis: same (Large Endometrial polyp) Procedure: Hysteroscopy D&C, Polypectomy Surgeon: Andi Chen MD Anesthesia: GLMA Was an Online Marketing Coordinator used for this Procedure?: No Estimated blood loss (mL): 0 Pathology: other (Endometrial Scrapping. Polyp) Condition: stable Disposition: PACU
--- NOTE | 2025-01-25 15:02 | P.OP_ITS ---
Operative Note Operative Note Date of Service: 01/25/25 Narrative: Preop Diagnosis: Abnormal endometrial by US Operation: Diagnostic Hysteroscopy, Dilataion & Curettage and polypectomy Post Op Diagnosis: Lower Endometrial Polyp filling up the whole endometrial cavity QBL: Minimal Anesthesia: GLMA Surgeon: Andi Chen MD Preschool Assistant Director: None Complication: None Pathology: Endometrial Scrapings, Endometrial polyp Procedure: The patient was put in the dorsal lithotomy position, scrubbed, and draped in the usual manner. A sterile speculum was inserted in the patient's vagina. The anterior lip of the cervix was grasped with a single tooth tenaculum. The cervix was dilated up to 5 mm, then the scope was inserted in the patient's uterus. Inspection revealed a large endometrial polyp filling up the whole endometrial cavity. The Myosure Reach device was used; it was introduced through the operative channel and polypectomy done with no complications. The scope was then taken out from the uterine cavity, sharp curettings was carried on with minimal to moderate amount of tissues retrieved. At the end of the procedure, all instruments were taken out of the patient uterine and vaginal cavity. The single tooth tenaculum was removed and homeostasis was assured using pressure,. The patient tolerated the procedure well and was transferred to the PACU in a stable condition.
[2025-01-25 15:08] VITALS: BP 132/56; PULSE 78; RESP 16; TEMP 36.4; O2SAT 97
[2025-01-25 15:15] VITALS: BP 147/69; PULSE 79; RESP 16; O2SAT 97
[2025-01-25] MEDS: Ketorolac Tromethamine 15 MG/ML VIAL IVPUSH (15:15)
--- NOTE | 2025-01-25 15:28 | HO.POSTANES ---
Post Anesthesia Evaluation Post Anesthesia Evaluation Date of Service: 01/25/25 Vital Signs: Vital Signs Temp Pulse Resp BP Pulse Ox O2 Del Method 01/25/25 13:15 98.1 F 93 16 178/73 H 99 Room Air Anesthesia: General LMA Mental Status: Awake Pain Control: Satisfactory Nausea/Vomiting: None Hydration: Adequate Anesthesia-Related Issues: No Anes. Related Issues
[2025-01-25 15:30] VITALS: BP 147/58; PULSE 79; RESP 18; O2SAT 97
[2025-01-25 15:45] VITALS: BP 146/53; PULSE 78; RESP 18; O2SAT 97
[2025-01-25 16:00] VITALS: BP 153/63; PULSE 80; RESP 20; TEMP 36.6; O2SAT 97
== END 2025-01-25 16:14 | disposition home or self-care (01) ==
PROVIDERS: Visit Provider Obstetrics & Gynecology
PROC: 0UDB8ZZ Extraction of Endometrium, Via Natural or Artificial Opening Endoscopic (ICD-10-PCS; CPT 58558; principal; 2025-01-25 14:30)
DX: N84.0 Polyp of corpus uteri (principal); R93.89 Abnormal findings on diagnostic imaging of other specified body structures; E03.9 Hypothyroidism, unspecified; M41.9 Scoliosis, unspecified; R53.1 Weakness; Z79.899 Other long term (current) drug therapy; Z96.652 Presence of left artificial knee joint
CPT/HCPCS: 58558; 88305; J1100; J1885; J2003; J2250; J2405; J2704; J3010

== ENCOUNTER → 2025-01-25 12:45 | Outpatient (BNV) | payer MEDICARE, SELFPAY | PROVIDERS: Visit Provider Obstetrics & Gynecology | DX: N84.1 Polyp of cervix uteri (principal); N93.9 Abnormal uterine and vaginal bleeding, unspecified | CPT/HCPCS: 58558 ==

== ENCOUNTER 2025-01-31 08:58 | Outpatient (AMB) | payer MEDICARE, SELFPAY ==
--- NOTE | 2025-01-31 09:34 | A.OFFVIS_ITS ---
Vital Signs 01/31/25 09:41 Height 4 ft 5 in Weight 146 lb BMI 36.5 Intake Visit Reasons: post op Allergies No Known Allergies Allergy (Verified 01/13/25 14:10) HPI Comments Details: The patient is presenting post hysteroscopy D&C no complaints minimal vaginal bleeding no feverishness chills or abdominal pain. The pathology showed the following: A. Endometrium, polypectomy: Endometrial polyp; no atypia identified. B. Endometrium, curettage: Superficial fragments of benign endometrium, endocervical and squamous epithelium; no atypia identified. 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 ) Vision needs: No Review of Systems Const All systems reviewed & are unremarkable except as noted in HPI and below Physical Exam Vital Signs: BMI result Body Mass Index 36.5 General: Yes no CVA tenderness External Female Exam: normal external appearance and normal appearance of the urethra Speculum Exam - Vagina: normal appearance of the vagina, normal palpation, no l esions and no masses Speculum Exam - Cervix: normal appearance of the cervix, normal palpation, no lesions, no masses and nontender Bimanual exam- vagina & uterus: normal bimanual exam, normal palpation, uterine size normal, normal palpation, uterine shape normal, No Cervical tenderness present and non-tender Bimanual Exam- Adnexa, other: normal adnexae Back/Spine/Pelvis Back: no CVA tenderness Assessment & Plan Assessment & Plan (1) Abnormal ultrasound of endometrium: Code(s): R93.5 - Abnormal findings on diagnostic imaging of other abdominal regions, including retroperitoneum Category: Medical Plan: Discussed with the patient the intraoperative finding and results of the pathol ogy. Discussed with the patient the sensitivity, specificity, positive and negative predictive value, of endometrial biopsy in detecting endometrial pathology including but not limited to endometrial hyperplasia, cancer and other pathology; instructed the patient to call in case vaginal bleeding recurs, the next step will be to proceed with further endometrial sampling evaluation to rule out endometrial pathology. All questions answered and the patient verbalized understanding and agreed with the plan. Coding Level of Care Code Est Pt Level 3 (12477) Diagnoses Abnormal ultrasound of endometrium R93.5
[2025-01-31 09:41] VITALS: BMI 36.5
--- OUTSIDE RECORDS SUMMARY | 2025-01-31 09:45 | XMS_ITS | Patient Health Record ---
Author Organization Medical Care Address [address] [facility] [address] [place] [address] Support Name Relationship Address Phone Aurora Quintero Guarantor Unknown [phone] Allergies No Known Allergies Reason For Referral No Information Plan Of Treatment Pending Test Test Name Order Date Covid-19 PCR - [facility] 07/30/2021 COVID 19 07/30/2021 Insurance Providers Payer Name Payer Address Payer Phone Subscriber Number Group Number Insured Name Patient Relationship to Insured Coverage Start Date Coverage End Date [place] Medicare Part B [place] J13 - [address] [place] [address] [id number] Aurora Quintero Self - patient is the insured
== END 2025-01-31 09:56 | disposition home or self-care (01) ==
LOC: HO.HWS 08:58
PROVIDERS: PCP Internal Medicine; Visit Provider Obstetrics & Gynecology
DX: R93.5 Abnormal findings on diagnostic imaging of other abdominal regions, including retroperitoneum (principal)
CPT/HCPCS: 99213

== ENCOUNTER → 2025-01-31 08:58 | Outpatient (BNVA) | payer MEDICARE, SELFPAY | PROVIDERS: PCP Internal Medicine; Visit Provider Obstetrics & Gynecology | DX: R93.5 Abnormal findings on diagnostic imaging of other abdominal regions, including retroperitoneum (principal) | CPT/HCPCS: 99212 ==

== ENCOUNTER 2025-02-23 13:18 | Outpatient (AMB) | payer MEDICARE, MEDICAID, SELFPAY ==
--- NOTE | 2025-02-23 13:24 | A.OFFPC_ITS ---
Vital Signs 02/23/25 13:27 Height 4 ft 5 in Weight 144 lb 4 oz BMI 36.1 BP 110/70 Blood Pressure Location Lt brachial Position Sitting Pulse 87 Pulse Source Pulse Oximeter Temp 97.1 F Temp Source Temporal Artery Scan Pulse Oximetry (%) 97 Oxygen Delivery Method Room Air Intake Visit Reasons: 3mth f/u - see comments Intake Note: Patient is here to follow up on Hypothyroidism. Request tylenol for pain, for weakness requesting vit b12, vit d3, calcium, multivit and ensure Flyer Maker Required: No Clinical Account Specialist: Not Required per policy Accompanied by: Self / Same As Patient Allergies No Known Allergies Allergy (Verified 02/23/25 13:26) Tobacco use date assessed: 02/23/25 Fall risk assessment: No Falls in past year Last assessed Fall Risk: 02/23/25 Dental Screening Dental Screen Date: 11/24/24 [facility] Medical History Acquired hypothyroidism Kyphoscoliosis Weakness Surgical History History of left knee replacement Social History Housing: Apartment Patient Tobacco Use Status: Never used Tobacco e-Cigarette/Vaping Use: Never Used Second Hand Smoke Exposure: No service: No Current occupational status: disabled Cognitive needs: No 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 1. Little interest or pleasure in doing things: not at all 2. Feeling down, depressed, or hopeless: not at all 3. Trouble falling or staying asleep, or sleeping too much: not at all 4. Feeling tired or having little energy: not at all 5. Poor appetite or overeating: not at all 6. Feeling bad about yourself - or that you are a failure or have let yourself or your family down: not at all 7. Trouble concentrating on things, such as reading the newspaper or watching television: not at all 8. Moving or speaking so slowly that other people could have noticed. Or the opposite - being so fidgety or restless that you have been moving around a lot more than usual: not at all 9. Thoughts that you would be better off or of hurting yourself in some way: not at all Total score: 0 Depression Screening Interpretation: Negative Depression Screening Done: Yes Source: Developed by Drs. Catalino Myers, Sallie Lopez, Vinh Meneses and colleagues, with an educational rebecca from [employer]. Thrive Questionnaire Date Thrive assessed: 11/24/24 I am a: Patient What is your living situation today?: I have a steady place to live Within the past 12 months, did the food you bought not last and you didn't have the money to get more?: I choose not to answer this question Within the past 12 months, did you worry whether your food would run out before you got money to buy more?: I choose not to answer this question Do you have trouble paying for medicines?: I choose not to answer this question Do you have trouble getting transportation to medical appointments?: I choose not to answer this question Do you have trouble paying your heating and electricity bill?: I choose not to answer this question Do you have trouble taking care of your child, family member or friend?: I choose not to answer this question Do you have trouble with day-to-day activities such as bathing, preparing meals, shopping, managing finances, etc.?: I choose not to answer this question Are you currently unemployed and looking for a job?: I choose not to answer this question Are you interested in more education?: I choose not to answer this question Please select the resources that you would like help with: None Currently or been in a relationship where the following occur: I choose not to answer THRIVE Score: 0 AUDIT C Alcohol Use Questionnaire (AUDIT-C) 1. How often do you have a drink containing alcohol?: Never Total Score: 0 HEAVEN-7 AMB Questionnaire HEAVEN-7 Date HEAVEN - 7 assessed: 11/24/24 Feeling nervous, anxious, or on edge: 0 = Not at all Not being able to stop or control worryin = Not at all Worrying too much about different things: 0 = Not at all Trouble relaxin = Not at all Being so restless that it is hard to sit still: 0 = Not at all Becoming easily annoyed or irritable: 0 = Not at all Feeling afraid as if something awful might happen: 0 = Not at all Total HEAVEN-7 score (0-4 normal; 5-9 mild; 10-14 moderate; 15-21 severe): 0 Source: Developed by Drs. Catalino Myers, Sallie Lopez, Vinh Meneses and colleagues, with an educational rebecca from [employer]. Physical exam (Primary Care) Vital Signs: Last Vital Signs Temp 97.1 F 02/23/25 13:27 Pulse 87 02/23/25 13:27 BP 110/70 02/23/25 13:27 Pulse Ox 97 02/23/25 13:27 Oxygen Delivery Method Room Air 02/23/25 13:27 Care Plan Goal for BP management: BP in range. BMI result Body Mass Index 36.1 BMI Assessment/Plan discussion: High Tobacco/Smoking Status: Tobacco use Status Tobacco use date assessed 02/23/25 02/23/25 13:38 Patient Tobacco Use Status Never used Tobacco 02/23/25 13:38 e-Cigarette/Vaping Use Never Used 02/23/25 13:38 PHQ-9: PHQ-9 Score PHQ-9: Total score 0 02/23/25 13:38 Depression Screening Interpretation: Negative Thrive Assessment: Date of Thrive Assessment Date Thrive assessed 11/24/24 02/23/25 13:38 Currently or been in a relationship where the following occur: I choose not to answer Advance Care Planning discussion: Exists, not on file Date of discussion: 02/23/25 Who was present: patient Forms completed: Health Care Proxy Time spent: 1-15 minutes, not on file Actual minutes spent: 5 Coding Level of Care Code Est Pt Level 4 (74011) Complex EM visit Add On G2211 Diagnoses Acquired hypothyroidism E03.9 Additional Codes Vital Signs *Quality* - Advance Care Planning discussion: Exists, not on file ([id number]) Vital Signs *Quality* - Time spent: 1-15 minutes, not on file ([id number]) Assessment & Plan Assessment & Plan (1) Acquired hypothyroidism: Code(s): E03.9 - Hypothyroidism, unspecified Category: Medical Plan: Blood work ordered. Will call with results and adjust medication accordingly. Plan History of Present Illness The patient is a 79-year-old female presenting with generalized pruritus after eating. She reports the itching sensation is widespread, occurring throughout her body post-meal with unclear onset duration. Certain factors such as cold weather and wearing sweaters might exacerbate the condition, whereas taking hydroxyzine daily has been indicated as somewhat beneficial in alleviating symptoms. The patient has not mentioned any associated pain or gastrointestinal symptoms. Social History - Lives with family members. - Regularly engages in walking with assistance from family members. - Does not drive currently. Review of Systems - Integumentary: Reports generalized itching after eating. - Gastrointestinal: Denies abdominal pain. Physical Exam General: Cooperative and healthy appearing Nutritional Appearance: Well nourished Orientation/consciousness: Patient oriented x3 Limitations: No limitations Head: Normal to inspection General: Appearance normal, both eyes and all related structures Neck: Normal visual inspection Chest: Normal palpation of entire chest wall Respiratory: Normal respiratory effort Neurology: Patient oriented x3 Skin: welts near the neck Results Plan - Prescribe hydroxyzine once daily for pruritus. - Order blood tests to explore potential causes of pruritus. - Evaluate treatment effectiveness and adjust if required. Patient was informed and verbally consented to the use of an ambient scribe for clinic note documentation during this visit. Discussion Notes I discussed the management of generalized pruritus with the patient, including the continued use of hydroxyzine, which provides some symptom relief. We talked about the importance of conducting a blood test to identify any underlying issues causing her pruritus. I emphasized observing the effects of the treatment and informed her that adjustments could be made depending on her response. We also discussed her approach to avoiding triggers such as cold weather and certain clothing materials. Patient Instructions - Take hydroxyzine once daily as prescribed. - Avoid known triggers like cold weather and certain fabrics. - Attend the laboratory for blood tests as advised. - Monitor symptoms and report any changes or worsening. Orders: Orders Thyroid Stimulating Hormone Today E03.9 - Hypothyroidism, unspecified Liver Panel Today E03.9 - Hypothyroidism, unspecified Complete Blood Count no Diff Today E03.9 - Hypothyroidism, unspecified UA and rflx microscopic Today E03.9 - Hypothyroidism, unspecified Basic Metabolic Panel Today E03.9 - Hypothyroidism, unspecified Lipid Panel Today E03.9 - Hypothyroidism, unspecified Medications: New hydroxyzine HCl 10 mg PO BEDTIME 30 tabs 0RF
[2025-02-23 13:27] VITALS: BP 110/70; PULSE 87; TEMP 36.2; O2SAT 97; BMI 36.1
--- OUTSIDE RECORDS SUMMARY | 2025-02-23 15:44 | XMS_ITS | Patient Health Record ---
Author Organization Medical Care Address [address] [facility] [address] [place] [address] Support Name Relationship Address Phone Aurora Quintero Guarantor Unknown [phone] Allergies No Known Allergies Reason For Referral No Information Plan Of Treatment Pending Test Test Name Order Date Covid-19 PCR - [facility] 07/30/2021 COVID 19 07/30/2021 Insurance Providers Payer Name Payer Address Payer Phone Subscriber Number Group Number Insured Name Patient Relationship to Insured Coverage Start Date Coverage End Date [place] [employer] - [address] [place] [address] [id number] Aurora Quintero Self - patient is the insured
== END 2025-02-23 14:30 | disposition home or self-care (01) ==
LOC: HO.HMCH 13:19
PROVIDERS: Visit Provider Internal Medicine
DX: E03.9 Hypothyroidism, unspecified (principal); Z00.00 Encounter for general adult medical examination without abnormal findings

== ENCOUNTER → 2025-02-23 13:18 | Outpatient (BNVA) | payer OTHER, SELFPAY | PROVIDERS: Visit Provider Internal Medicine | DX: E03.9 Hypothyroidism, unspecified (principal); L29.9 Pruritus, unspecified | CPT/HCPCS: 96127; 99212 ==

== ENCOUNTER 2025-08-30 08:45 | Outpatient (AMB) | payer MEDICARE, MEDICAID, SELFPAY ==
--- OUTSIDE RECORDS SUMMARY | 2025-08-30 09:13 | XMS_ITS | Patient Health Record ---
Author Organization Medical Care Address [address] [facility] [address] [place] [address] Support Name Relationship Address Phone Aurora Quintero Guarantor Unknown [phone] Allergies No Known Allergies Reason For Referral No Information Plan Of Treatment Pending Test Test Name Order Date Covid-19 PCR - [facility] 07/30/2021 COVID 19 07/30/2021 Insurance Providers Payer Name Payer Address Payer Phone Subscriber Number Group Number Insured Name Patient Relationship to Insured Coverage Start Date Coverage End Date [place] Medicare Part [place] [employer] - [address] [place] [phone] [id number] Aurora Quintero Self - patient is the insured
--- NOTE | 2025-08-30 09:21 | MHC.PC.OV ---
Vital Signs 08/30/25 09:23 Height 4 ft 5 in Weight 147 lb 4 oz BMI 36.9 BP 110/70 Blood Pressure Location Lt brachial Position Sitting Pulse 80 Pulse Source Pulse Oximeter Temp 97.3 F Temp Source Temporal Artery Scan Pulse Oximetry (%) 98 Oxygen Delivery Method Room Air Intake Visit Reasons: 3 month f/u Intake Note: Patient is here to follow up on Hypothyroidism. Data Processing Equipment Repairer Required: No Tool And Equipment Rental Clerk: Not Required per policy Accompanied by: Self / Same As Patient Allergies No Known Allergies Allergy (Verified 09/04/25 20:03) Medication List - Last Reconciled 09/04/25 by Norris Clark MD hydroxyzine HCl 10 mg PO BEDTIME levothyroxine (Synthroid) 25 mcg PO DAILY pantoprazole 40 mg PO DAILY [Walker As directed] Tobacco use date assessed: 08/30/25 Fall risk assessment: No Falls in past year Last assessed Fall Risk: 08/30/25 Dental Screening Dental Screen Date: 11/24/24 HPI 3 month f/u HPI Details 80-year-old female presents to the office to discuss her chronic medical conditions. Patient is compliant with medications and reporting no side effects. Able to function and do all activities of daily living. 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 ) Vision needs: No Questionnaire Thrive Questionnaire Date Thrive assessed: 02/23/25 I am a: Patient What is your living situation today?: I have a steady place to live Within the past 12 months, did the food you bought not last and you didn't have the money to get more?: I choose not to answer this question Within the past 12 months, did you worry whether your food would run out before you got money to buy more?: I choose not to answer this question Do you have trouble paying for medicines?: I choose not to answer this question Do you have trouble getting transportation to medical appointments?: I choose not to answer this question Do you have trouble paying your heating and electricity bill?: I choose not to answer this question Do you have trouble taking care of your child, family member or friend?: I choose not to answer this question Do you have trouble with day-to-day activities such as bathing, preparing meals, shopping, managing finances, etc.?: I choose not to answer this question Are you currently unemployed and looking for a job?: I choose not to answer this question Are you interested in more education?: I choose not to answer this question Please select the resources that you would like help with: None Currently or been in a relationship where the following occur: I choose not to answer THRIVE Score: 0 HEAVEN-7 AMB Questionnaire HEAVEN-7 Date HEAVEN - 7 assessed: 11/24/24 Source: Developed by Drs. Catalino Myers, Sallie Lopez, Vinh Meneses and colleagues, with an educational rebecca from [employer]. Physical exam (Primary Care) Vital Signs: Last Vital Signs Temp 97.3 F 08/30/25 09:23 Pulse 80 08/30/25 09:23 BP 110/70 08/30/25 09:23 Pulse Ox 98 08/30/25 09:23 Oxygen Delivery Method Room Air 08/30/25 09:23 BMI result Body Mass Index 36.9 Tobacco/Smoking Status: Tobacco use Status Tobacco use date assessed 08/30/25 08/30/25 10:11 Patient Tobacco Use Status Never used Tobacco 08/30/25 10:11 e-Cigarette/Vaping Use Never Used 08/30/25 10:11 Thrive Assessment: Date of Thrive Assessment Date Thrive assessed 02/23/25 08/30/25 10:11 Currently or been in a relationship where the following occur: I choose not to answer Const General: cooperative and healthy appearing Nutritional Appearance: well nourished Orientation/consciousness: patient oriented x3 Limitations: no limitations HENMT Head: Yes normal to inspection Eyes General: appearance normal, both eyes and all related structures Neck Neck: Yes normal visual inspection Chest Chest palpation & inspection: normal palpation of entire chest wall Resp Effort & Inspection: normal respiratory effort Neuro General: patient oriented x3 Coding Level of Care Code Est Pt Level 3 (34980) Complex EM visit Add On G2211 Diagnoses Acquired hypothyroidism E03.9 Assessment & Plan Assessment & Plan (1) Acquired hypothyroidism: Code(s): E03.9 - Hypothyroidism, unspecified Category: Medical Plan: Blood work ordered. Continue medicines the same dosage
[2025-08-30 09:23] VITALS: BP 110/70; PULSE 80; TEMP 36.3; O2SAT 98; BMI 36.9
== END 2025-08-30 10:55 | disposition home or self-care (01) ==
LOC: HO.HMCH 08:46
PROVIDERS: PCP Internal Medicine; Visit Provider Internal Medicine
DX: E03.9 Hypothyroidism, unspecified (principal)

== ENCOUNTER → 2025-08-30 08:45 | Outpatient (BNVA) | payer OTHER, SELFPAY | PROVIDERS: PCP Internal Medicine; Visit Provider Internal Medicine | DX: R53.1 Weakness (principal); E03.9 Hypothyroidism, unspecified | CPT/HCPCS: 99212 ==

== ENCOUNTER 2025-09-28 08:07 | Outpatient (REF) | payer MEDICARE, SELFPAY ==
[2025-09-28 10:51] LABS: Hematocrit 38.2 % (37.0-47.0); Hemoglobin 12.3 g/dl (12.0-16.0); Mean Corpuscular HGB Conc 32.2 g/dl (31.0-35.0); Mean Corpuscular Hemoglobin 29.9 pg (27.0-33.0); Mean Corpuscular Volume 92.9 fL (80.0-98.0); NRBC Abs Auto 0.000 X10*3/uL (0.0-0.012); NRBC Pct Auto 0.0 /100WBC (0.0-0.2); Platelet Count 305 X10*3/uL (160-400); Red Blood Count 4.11 X10*6/uL (4.20-5.50); White Blood Count 7.0 X10*3/uL (4.8-10.8)
[2025-09-28 11:47] LABS: Appearance Urine Clear; Glucose Urine UA Negative (Negative); PH 5.5 (5.0-9.0); Specific Gravity - Urine 1.020 (1.005-1.025); UMIC TRIGGER UA YES
[2025-09-28 11:53] LABS: Alanine Aminotransferase 15 U/L (0-31); Albumin Level 4.4 g/dL (3.5-5.0); Alkaline Phosphatase 83 U/L (39-117); Anion Gap 12 (12-20); Aspartate Amino Transferase 20 U/L (5-31); Blood Urea Nitrogen 17 mg/dL (9-16); Calcium 9.8 mg/dL (8.4-10.2); Carbon Dioxide 27 mmol/L (22-29); Chloride 107 mmol/L (96-108); Cholesterol 243 mg/dL (<200); Estimated Glomerular Filt Rate > 60; HDL Cholesterol 43 mg/dL (>40); Potassium 4.1 mmol/L (3.3-5.1); Sodium 142 mmol/L (135-145); Total Protein 7.6 g/dL (6.5-8.0); Triglycerides 191 mg/dL (<150)
[2025-09-28 12:10] LABS: Thyroid Stimulating Hormone 2.55 uIU/mL (0.32-4.0)
== END 2025-09-28 08:08 | disposition home or self-care (01) ==
LOC: HO.LAB 08:07
PROVIDERS: Absent Provider Internal Medicine; PCP Internal Medicine; Visit Provider Internal Medicine
DX: L21.0 Seborrhea capitis (principal); B85.2 Pediculosis, unspecified; E03.9 Hypothyroidism, unspecified; L98.9 Disorder of the skin and subcutaneous tissue, unspecified
CPT/HCPCS: 36415; 80048; 80061; 80076; 81001; 84443; 85027; 99212

== ENCOUNTER 2025-09-28 08:07 | Outpatient (AMB) | payer MEDICARE, MEDICAID, SELFPAY ==
--- NOTE | 2025-09-28 08:12 | MHC.PC.OV ---
Vital Signs 09/28/25 08:13 Height 4 ft 5 in Weight 149 lb 4 oz BMI 37.4 BP 134/64 Blood Pressure Location Lt brachial Position Sitting Pulse 86 Pulse Source Pulse Oximeter Temp 97.1 F Temp Source Temporal Artery Scan Pulse Oximetry (%) 96 Oxygen Delivery Method Room Air Intake Visit Reasons: Lice and Dandruff Intake Note: Patient is here to follow up on Lice, dandruff and bump at the back of head. Knee Bolter Required: No Automotive Leasing Sales Representative: Present Accompanied by: Daughter Allergies No Known Allergies Allergy (Verified 09/28/25 08:13) Medication List - Last Reconciled 09/28/25 by Sangeetha Garcia MD hydroxyzine HCl 10 mg PO BEDTIME levothyroxine (Synthroid) 25 mcg PO DAILY pantoprazole 40 mg PO DAILY permethrin 1% (Lice Killing (permethrin)) 60 mL topical ONCE 1 day [Walker As directed] Tobacco use date assessed: 09/28/25 Fall risk assessment: No Falls in past year Last assessed Fall Risk: 09/28/25 Dental Screening Dental Screen Date: 11/24/24 HPI HPI Comments History of Present Illness Details 80 year old female presenting with a 15-day history of significant hair lice infestation and dandruff. She reports this is her first time having lice. Associated symptoms include constant, severe itching that disrupts her sleep at night. Due to intense scratching, she has developed scabs and swelling on her scalp, and her skin becomes reddish in areas of scratching. She has not tried any treatments for the lice or itching. She also complains of pain in her left upper arm, for which she uses Bengay for relief. She reports receiving a flu shot in her right arm in July. The patient has a prescription for hydroxyzine but has not been taking it every day. [facility] Medical History Acquired hypothyroidism Kyphoscoliosis Weakness Surgical History History of left knee replacement Social History Housing: Apartment Patient Tobacco Use Status: Never used Tobacco e-Cigarette/Vaping Use: Never Used Second Hand Smoke Exposure: No service: No Current occupational status: disabled Cognitive needs: No 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 ) Vision needs: No Questionnaire Thrive Questionnaire Date Thrive assessed: 02/23/25 I am a: Patient What is your living situation today?: I have a steady place to live Within the past 12 months, did the food you bought not last and you didn't have the money to get more?: I choose not to answer this question Within the past 12 months, did you worry whether your food would run out before you got money to buy more?: I choose not to answer this question Do you have trouble paying for medicines?: I choose not to answer this question Do you have trouble getting transportation to medical appointments?: I choose not to answer this question Do you have trouble paying your heating and electricity bill?: I choose not to answer this question Do you have trouble taking care of your child, family member or friend?: I choose not to answer this question Do you have trouble with day-to-day activities such as bathing, preparing meals, shopping, managing finances, etc.?: I choose not to answer this question Are you currently unemployed and looking for a job?: I choose not to answer this question Are you interested in more education?: I choose not to answer this question Please select the resources that you would like help with: None Currently or been in a relationship where the following occur: I choose not to answer THRIVE Score: 0 HEAVEN-7 AMB Questionnaire HEAVEN-7 Date HEAVEN - 7 assessed: 11/24/24 Source: Developed by Drs. Catalino Myers, Sallie Lopez, Vinh Meneses and colleagues, with an educational rebecca from [employer]. Review of Systems Const Details: Not done. Physical exam (Primary Care) Vital Signs: Last Vital Signs Temp 97.1 F 09/28/25 08:13 Pulse 86 09/28/25 08:13 BP 134/64 09/28/25 08:13 Pulse Ox 96 09/28/25 08:13 Oxygen Delivery Method Room Air 09/28/25 08:13 BMI result Body Mass Index 37.4 Tobacco/Smoking Status: Tobacco use Status Tobacco use date assessed 09/28/25 09/28/25 08:20 Patient Tobacco Use Status Never used Tobacco 09/28/25 08:20 e-Cigarette/Vaping Use Never Used 09/28/25 08:20 Thrive Assessment: Date of Thrive Assessment Date Thrive assessed 02/23/25 09/28/25 08:20 Currently or been in a relationship where the following occur: I choose not to answer Const Other: Pertinent findings are in BOLD GENERAL APPEARANCE NAD, activity normal for age, well developed/ well nourished, no cyanosis, pallor, or diaphoresis. EYES lids/conjunctiva normal. EARS/NOSE/THROAT Mucous membranes moist, nares normal, lips/teeth normal uvula midline without oral pharyngeal erythema, exudate or swelling TMs normal bilaterally. No lymphangitis/lymphedema. HEAD/NECK normocephalic atraumatic, no facial trauma, neck is supple. RESPIRATORY respiratory effort normal, speaks in full sentences, no tripod position, no accessory muscle use. Lungs clear to auscultation without rhonchi, wheezes, rales CARDIAC Regular rate and rhythm, no edema. ABDOMINAL Soft, ND/NT. No evidence of fluid wave. No pulsatile masses on exam, rebound tenderness, Hernandez sign or pain over Mcburney's point. MUSCLES/EXTREMITIES No abnormal range of motion, no swelling. SKIN Warm, pink and dry. No rashes, dermatoses, petechiae or lesions. Erythema and scabs in scalp. No lice seen on exam today. NEUROLOGICAL Speech is clear and appropriate. Normal level of consciousness. Gait and coordination are normal. 5/5 strength in all extremities. PSYCH Normal mood and affect. Judgement/competence is appropriate Coding Level of Care Code Est Pt Level 3 (89297) Diagnoses Lice B85.2 Bumps on skin L98.9 Dandruff L21.0 Time Spent (min) 20 Assessment & Plan Assessment & Plan (1) Lice: Code(s): B85.2 - Pediculosis, unspecified Category: Medical Plan: - Pirmetherin 1% has been prescribed to treat the lice infestation. - The patient was instructed to apply the lotion to her hair, leave it on for 10 minutes, and then wash it off. - This treatment is to be repeated in 9 days; two bottles will be provided. - The lotion can also be applied to other itchy areas of the body. - The scabs and skin lesions are likely secondary to scratching from the lice. - Follow-up is scheduled in two weeks to assess treatment response. - The patient was advised to take her prescribed hydroxyzine daily to manage itching and aid with sleep. (2) Bumps on skin: Code(s): L98.9 - Disorder of the skin and subcutaneous tissue, unspecified Category: Medical Plan: - The patient was advised to continue using Bengay for her arm pain as it provides relief. - Prescription provided. (3) Dandruff: Code(s): L21.0 - Seborrhea capitis Category: Medical Plan: - The management of dandruff will be addressed after the lice infestation has been successfully treated. - This will be reviewed at the two-week follow-up appointment. Plan I explained to the patient that her symptoms of severe itching, scabs, and scalp swelling are due to a head lice infestation. I prescribed Pirmetherin 1% and detailed the two-step treatment process: apply for 10 minutes, wash out, and repeat the entire process in nine days. I advised her to also take her hydroxyzine daily to manage the itching and help her sleep. We will address her dandruff after confirming the lice have been eradicated. For her left arm pain, I recommended continuing with Bengay as it helps. I scheduled a follow-up appointment in two weeks to check on her progress. Medications: New permethrin 1% (Lice Killing (permethrin)) Use one bottle on day 1 and then repeat treatment with a second bottle on day 9. 60 mL topical ONCE 1 day 59 mL 1RF menthol 2.5% (BenGay Vanishing Scent) 1 appl topical BID-QID PRN 57 grams 2RF pain permethrin 1% (Lice Killing (permethrin)) Use one bottle on day 1 and then repeat treatment with a second bottle on day 9. 60 mL topical ONCE 59 mL 1RF 1 day menthol 2.5% (BenGay Vanishing Scent) 1 appl topical BID-QID PRN 57 grams 2RF pain
[2025-09-28 08:13] VITALS: BP 134/64; PULSE 86; TEMP 36.2; O2SAT 96; BMI 37.4
== END 2025-09-28 09:02 | disposition home or self-care (01) ==
LOC: HO.HMCH 08:08
PROVIDERS: PCP Internal Medicine; Visit Provider Internal Medicine
DX: B85.2 Pediculosis, unspecified (principal); L98.9 Disorder of the skin and subcutaneous tissue, unspecified; L21.0 Seborrhea capitis

== ENCOUNTER 2025-10-12 07:57 | Outpatient (AMB) | payer MEDICARE, MEDICAID, SELFPAY ==
--- NOTE | 2025-10-12 08:23 | A.OFFPC_ITS ---
Vital Signs 10/12/25 08:24 Height 4 ft 5 in Weight 146 lb 4 oz BMI 36.6 BP 120/82 Blood Pressure Location Lt brachial Position Sitting Pulse 85 Pulse Source Pulse Oximeter Temp 97.3 F Temp Source Temporal Artery Scan Pulse Oximetry (%) 97 Oxygen Delivery Method Room Air Intake Visit Reasons: Lice- Follow Up Intake Note: Patient is here to follow up on Lice. Clay Miller Required: No Store Operations Manager: Not Required per policy Accompanied by: Self / Same As Patient Allergies No Known Allergies Allergy (Verified 10/12/25 08:23) Medication List - Last Reconciled 10/12/25 by Sangeetha Garcia MD hydroxyzine HCl 10 mg PO BEDTIME levothyroxine (Synthroid) 25 mcg PO DAILY menthol 2.5% (BenGay Vanishing Scent) 1 appl topical BID-QID PRN pantoprazole 40 mg PO DAILY permethrin 1% (Lice Killing (permethrin)) 60 mL topical ONCE 1 day [Walker As directed] Tobacco use date assessed: 10/12/25 Fall risk assessment: No Falls in past year Last assessed Fall Risk: 10/12/25 Dental Screening Dental Screen Date: 11/24/24 HPI HPI Comments History of Present Illness Details The patient is a 80 year old female with PMH of HLD, hypothyroidism, GERD, dandruff and hair loss presenting for follow-up for lice infestation and to discuss dandruff, hair loss issues and urinary incontinence. She was previously seen on September 28 for lice, for which she was treated with Permethrin which has since resolved, but she continues to have bumps and dandruff on her scalp. She also reports significant hair loss. The patient reports a one-month history of urinary incontinence. She describes a lack of urinary control, particularly upon waking in the morning, which results in accidents and requires her to change her underwear frequently. She also experiences urinary leakage when she coughs. UA from 09/28 was negative for infection. She denies any burning sensation with urination. She has previously had physical therapy with pelvic floor exercises in [place], which she found helpful. The patient was found to have elevated cholesterol on a lipid panel from 09/28. She agrees to start a statin treatment. 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 ) Vision needs: No Questionnaire Thrive Questionnaire Date Thrive assessed: 02/23/25 I am a: Patient What is your living situation today?: I have a steady place to live Within the past 12 months, did the food you bought not last and you didn't have the money to get more?: I choose not to answer this question Within the past 12 months, did you worry whether your food would run out before you got money to buy more?: I choose not to answer this question Do you have trouble paying for medicines?: I choose not to answer this question Do you have trouble getting transportation to medical appointments?: I choose not to answer this question Do you have trouble paying your heating and electricity bill?: I choose not to answer this question Do you have trouble taking care of your child, family member or friend?: I choose not to answer this question Do you have trouble with day-to-day activities such as bathing, preparing meals, shopping, managing finances, etc.?: I choose not to answer this question Are you currently unemployed and looking for a job?: I choose not to answer this question Are you interested in more education?: I choose not to answer this question Please select the resources that you would like help with: None Currently or been in a relationship where the following occur: I choose not to answer THRIVE Score: 0 HEAVEN-7 AMB Questionnaire HEAVEN-7 Date HEAVEN - 7 assessed: 11/24/24 Source: Developed by Drs. Catalino Myers, Sallie Lopez, Vinh Meneses and colleagues, with an educational rebecca from [employer] Review of Systems Const Details: As per HPI. Physical exam (Primary Care) Vital Signs: Last Vital Signs Temp 97.3 F 10/12/25 08:24 Pulse 85 10/12/25 08:24 BP 120/82 12/18/25 08:24 Pulse Ox 97 10/12/25 08:24 Oxygen Delivery Method Room Air 10/12/25 08:24 BMI result Body Mass Index 36.6 Tobacco/Smoking Status: Tobacco use Status Tobacco use date assessed 10/12/25 10/12/25 08:30 Patient Tobacco Use Status Never used Tobacco 10/12/25 08:30 e-Cigarette/Vaping Use Never Used 10/12/25 08:30 Thrive Assessment: Date of Thrive Assessment Date Thrive assessed 02/23/25 10/12/25 08:30 Currently or been in a relationship where the following occur: I choose not to answer Const Other: Pertinent findings are in BOLD GENERAL APPEARANCE NAD, activity normal for age, well developed/ well nourished, no cyanosis, pallor, or diaphoresis. EYES lids/conjunctiva normal. EARS/NOSE/THROAT Mucous membranes moist, nares normal, lips/teeth normal uvula midline without oral pharyngeal erythema, exudate or swelling TMs normal bilaterally. No lymphangitis/lymphedema. HEAD/NECK normocephalic atraumatic, no facial trauma, neck is supple. RESPIRATORY respiratory effort normal, speaks in full sentences, no tripod position, no accessory muscle use. Lungs clear to auscultation without rhonchi, wheezes, rales CARDIAC Regular rate and rhythm, no edema. ABDOMINAL Soft, ND/NT. No evidence of fluid wave. No pulsatile masses on exam, r ebound tenderness, Hernandez sign or pain over Mcburney's point. MUSCLES/EXTREMITIES No abnormal range of motion, no swelling. SKIN Warm, pink and dry. No rashes, dermatoses, petechiae or lesions. Dandruff on scalp. No lice noted. Patchy spot of hair loss. No hair thinning noted. NEUROLOGICAL Speech is clear and appropriate. Normal level of consciousness. Gait and coordination are normal. 5/5 strength in all extremities. PSYCH Normal mood and affect. Judgement/competence is appropriate Coding Level of Care Code Est Pt Level 4 (00277) Diagnoses Falling hair L65.9 Mixed stress and urge urinary incontinence N39.46 Urinary Incontinence type: mixed stress and urge incontinence Dandruff L21.0 HLD (hyperlipidemia) E78.5 Time Spent (min) 30 Assessment & Plan Assessment & Plan (1) Falling hair: Code(s): L65.9 - Nonscarring hair loss, unspecified Category: Medical Plan: - A referral will be placed to Dermatology for further evaluation and management of hair loss. (2) Urinary incontinence: Code(s): R32 - Unspecified urinary incontinence Category: Medical Qualifiers: Urinary Incontinence type: mixed stress and urge incontinence Qualified Code(s): N39.46 - Mixed incontinence Plan: - Patient reports leakage accidents with cough/sneezing and leakage associated with urgency. - A referral will be placed to Physical Therapy for Kegel exercises, which have been helpful for the patient in the past. - Patient does not consume irritants such as coffee or alcohol. - If symptoms persist despite physical therapy, will consider a referral to a urology specialist. (3) Dandruff: Code(s): L21.0 - Seborrhea capitis Category: Medical Plan: - Prescribed selenium sulfide 2.25% shampoo to be used once daily for seven days. - Instructed to apply the shampoo, let it sit for 10 minutes, and then rinse. - I advised the patient that her insurance might cover the prescription. (4) HLD (hyperlipidemia): Code(s): E78.5 - Hyperlipidemia, unspecified Category: Medical Plan: - The patient most recent Lipid panel showed elevated cholesterol 243, LDL 162. - Patient is agreable to start statin medication. - Atorvastatin 40 mg Daily was started. Plan I discussed the plan with the patient, which includes a prescription shampoo for her dandruff, a referral to a it engineer for her hair loss, and a referral to physical therapy for her urinary incontinence. I explained the instructions for the selenium sulfide shampoo, advising her to use it once daily for seven days, letting it sit for 10 minutes before rinsing. I informed the patient that her insurance might not cover the shampoo. I informed her that a referral to physical therapy for Kegel's exercises would be made to help strengthen her bladder control, and that if this does not help, we could consider a referral to a Urologist. I sent a prescription of Atorvastatin 40 mg Daily for the patient HLD. I noted that insurance may not cover the cost of the shampoo, but I would place the order for her to check with the pharmacy. Orders: Orders PT Evaluation and Treatment Today R32 - Unspecified urinary incontinence Referrals Dermatology Referral L65.9 - Nonscarring hair loss, unspecified Medications: New atorvastatin (Lipitor) 40 mg PO DAILY 60 tabs 3RF selenium sulfide 2.25% massage into affected area; leave on for 10 mins ; rinse off thoroughly 1 appl topical DAILY 180 mL 0RF 7 days Refilled hydroxyzine HCl 10 mg PO BEDTIME 30 tabs 0RF
[2025-10-12 08:24] VITALS: BP 120/82; PULSE 85; TEMP 36.3; O2SAT 97; BMI 36.6
== END 2025-10-12 10:03 | disposition home or self-care (01) ==
LOC: HO.HMCH 07:57
PROVIDERS: PCP Internal Medicine; Visit Provider Internal Medicine
DX: L65.9 Nonscarring hair loss, unspecified (principal); N39.46 Mixed incontinence; L21.0 Seborrhea capitis; E78.5 Hyperlipidemia, unspecified

== ENCOUNTER → 2025-10-12 07:57 | Outpatient (BNVA) | payer OTHER, SELFPAY | PROVIDERS: PCP Internal Medicine; Visit Provider Internal Medicine | DX: K21.9 Gastro-esophageal reflux disease without esophagitis (principal); E03.9 Hypothyroidism, unspecified; L65.9 Nonscarring hair loss, unspecified; E78.00 Pure hypercholesterolemia, unspecified; N39.46 Mixed incontinence; L21.0 Seborrhea capitis | CPT/HCPCS: 99212 ==